=== PATIENT | female | born 1955 | race Caucasian/White ===

== ENCOUNTER 2019-03-08 13:37 | Outpatient (CLI) | payer OTHER ==
--- NOTE | 2019-03-08 16:02 | Diagnostic Imaging Report ---
<p>Your browser does not support iframes.</p> IVY BENTON [facility] [id number] [facility].[address] [id number] Report Submission Date: Mar 08, 2019 3:38:53 PM CDT Patient Study Name: BARBARA GARCIA Date: Mar 08, 2019 1:46:10 PM CDT Modality Type: DX Gender: F Description: ANKLE 3 VIEWS OR MORE : 55 Institution: [facility] Physician: IVY BENTON Exam: Left ankle. History: Pain. AP, lateral and mortise view of the left ankle are submitted. No signs of acute fracture or dislocation is seen. No bony erosions are seen. No soft tissue abnormalities identified. Impression: No bony abnormality. Electronically signed on Mar 08, 2019 3:38:53 PM CDT by: Osman TORRES
== END 2019-03-08 13:40 ==
LOC: RAD 13:37
PROVIDERS: ATTEND Podiatrist Foot & Ankle Surgery
DX: M25.572 Pain in left ankle and joints of left foot (principal)
CPT/HCPCS: 73610

== ENCOUNTER 2019-03-15 14:29 | Outpatient (CLI) | payer OTHER ==
--- NOTE | 2019-03-19 15:27 | OP Clinic Progress Note ---
DATE OF VISIT: 03/15/2019 SUBJECTIVE: Karen Paul is a 63-year-old female presenting to clinic today for a follow-up after her last visit 2 weeks ago for left ankle pain. She began walking extra a couple weeks ago on grass and uneven ground which seemed to cause more pain at that time. She has tried elevation but had not tried ice yet the last time I saw her. She states that the pain is present every step but worse the longer she was on it. The pain is mainly located in the ankle area as well as on the proximal lateral dorsal foot. This is all on the left side. The patient has had an ankle brace at home which she stated she would begin trying to use and she brought it in today so I could see it. The ankle brace is not that sturdy/durable. I recommended that we needed something more sturdy or more appropriate immobilization as she was seeming to be feeling like it is getting a little bit worse still. The pain is not there in the first several steps but does begin the longer she walks on it. She also admits being diabetic for about a year now with an A1C of 6.3% one month ago. She states that she did try the ankle brace and it did not seem to help a lot previously nor in this last week. She obtained x-rays on 03/08/19 at our last visit and those were essentially negative for any fracture, dislocation or bony erosions. She is here for follow- up. She does not admit to any fevers, chills, nausea, vomiting, shortness of breath or chest pain. OBJECTIVE: Vitals: Temperature 98.2 degrees Fahrenheit, heart rate 67, respiration rate 18, blood pressure 157/100 which was discussed with the patient and this is higher than it was last week and she will continue to monitor. O2 saturation is 95% on room air. Vascular: 2+ DP and PT pulses, left foot. Capillary refill time is less than 3 seconds to the toes of the left foot. There is no edema noted, left foot excepts for perhaps slightly some on the proximal lateral dorsal aspect of the left foot. It is very mild, if any. Dermatologic: There is no ecchymosis noted or erythema noted, or skin lesions noted, left foot. Musculoskeletal: There is pain on palpation most prominent at the anteromedial left ankle near the medial gutter/portal for an arthroscopy. This is just referenced for location. There is also pain on palpation noted at the calcaneocuboid joint area dorsally and at the extensor digitorum brevis muscle belly area. There is also a mild clicking sensation at this area on the calcaneocuboid joint area at the extensor digitorum brevis muscle belly, left foot with pronation and supination motion. There is also pain to palpation noted at the sinus tarsi of the left foot. There is no pain really with inversion or eversion nor with dorsiflexion or plantar flexion. There are no obvious gross abnormalities noted. Neurologic: Light touch sensation is intact to the toes, bilaterally. ASSESSMENT AND PLAN: 1. Left ankle pain/arthritis. 2. Left sinus tarsi pain. I believe that we need to be more aggressive with either a very good brace or Orthoboot to immobilize the left lower extremity. The patient elects to go forward with an Orthoboot and she was given a boot today to take home with her. We are curious whether or not she would do okay with a steroid injection in either the ankle or in the sinus tarsi area. Due to her history of Hodgkins lymphoma I would like to do a little bit of review first to see if a steroid injection or even an oral steroid would be okay for a small period of time. I will discuss this with one of our primary care physicians. No procedure was performed today. The boot was dispensed today and the patient is to weight bear at all times in that boot. Return to the clinic in 2-3 weeks. If the pain is continuing we will consider an MRI versus a steroid injection into the ankle or sinus tarsi depending on which one is hurting worse and we will begin considering some sort of surgical plan if we are not improving and the MRI shows anything. The patient has no further questions or concerns and is grateful for the plan going forward. We will see her in 2 or 3 weeks. Taya HunterP.M. (Dictated/Not Signed) Gurvinder Job#: [id number] MTDD
== END 2019-03-15 14:32 ==
LOC: POD 14:29
PROVIDERS: ATTEND Podiatrist Foot & Ankle Surgery
DX: M19.072 Primary osteoarthritis, left ankle and foot (principal); G57.52 Tarsal tunnel syndrome, left lower limb
CPT/HCPCS: 99213